=== PATIENT | female | born 1995 | race Caucasian/White ===

== ENCOUNTER 2019-04-20 13:20 | Emergency (ER) | payer SELFPAY ==
[~2019-04-20] VITALS: Ht 152.4 cm; Wt 48.1 kg
[2019-04-20 13:23] VITALS: BP 128/85
[2019-04-20] MEDS ORDERED: PREDNISONE10 MG PO (13:41)
[2019-04-20] MEDS ORDERED: NAPROSYN500 MG PO (14:38)
[2019-04-20] MEDS ORDERED: MEDROL DOSEPAK4 MG PO (14:38)
== END 2019-04-20 14:56 | disposition home or self-care (01) ==
LOC: ED 13:20
DX: G89.29 Other chronic pain (principal); M54.5 Low back pain; M25.561 Pain in right knee; M25.562 Pain in left knee; M19.90 Unspecified osteoarthritis, unspecified site; F17.200 Nicotine dependence, unspecified, uncomplicated; Z91.040 Latex allergy status